=== PATIENT | female | born 1965 ===

== ENCOUNTER 2021-10-22 10:22 | Outpatient (REF) | payer OTHER, SELFPAY ==
--- NOTE | ~2021-10-22 | XR_ITS ---
EXAMINATION: XR ELBOW, LEFT CLINICAL INFORMATION: Fall. COMPARISON: None TECHNIQUE: AP, lateral, and oblique views of the left elbow. FINDINGS: Radial neck fracture with mild impaction. No other fractures. Alignment of the elbow joint is maintained. Small joint effusions. No unexpected radiopaque foreign bodies. XR/XR elbow LT 2V IMPRESSION: Radial neck fracture with mild impaction.
--- NOTE | ~2021-10-22 | XR_ITS ---
EXAMINATION: XR WRIST, LEFT CLINICAL INFORMATION: Left wrist pain status post fall. COMPARISON: None TECHNIQUE: PA, lateral, and oblique views of the left wrist. FINDINGS: There is no acute fracture or dislocation. The carpal bones are normally aligned. The distal radius and ulna are intact. Mild distal radial ulnar degenerative joint changes are seen. The soft tissues are unremarkable. XR/XR wrist LT min 3V IMPRESSION: No acute left wrist abnormality.
== END 2021-10-22 10:23 | disposition home or self-care (01) ==
LOC: HO.HMGCX 10:22
PROVIDERS: PCP Internal Medicine; Visit Provider Emergency Medicine
DX: M25.532 Pain in left wrist (principal); M25.522 Pain in left elbow; W19.XXXA Unspecified fall, initial encounter
CPT/HCPCS: 73070; 73110